=== PATIENT | female | born 1960 | race Caucasian/White ===

== ENCOUNTER 2016-06-10 07:56 | Day surgery (SDC) | payer OTHER ==
[~2016-06-10] VITALS: Ht 167.6 cm; Wt 55.8 kg
[~2016-06-10 07:56] MED LIST: PEPS1TAB11 PO; Sodium Chloride LOK Flush 10 mL Syringe IV PRN; fentaNYL-PF 50 mCg/mL 2 mL Inj IVPUSH PRN
[2016-06-10 08:32] VITALS: BP 120/75; PULSE 77; RESP 16; O2SAT 97
[2016-06-10] MEDS: 0.9% Sodium Chloride 1,000 ML IV SCH ×3 (08:33→09:03)
[2016-06-10 09:08] VITALS: BP 102/59; PULSE 68; RESP 12; O2SAT 95
--- NOTE | 2016-06-10 09:09 | PCM.ENDEGD ---
EGD Date of Service: Jun 10, 2016 Physician Christian Hahn MD Pre Procedure Diagnosis: Dysphagia Post Procedure Dx & Findings: Nonobstructing Schatzki's ring gastritis healing gastric ulcer whitish nodule in the small bowel. Procedure Esophagogastroduodenoscopy PROCEDURE IN DETAIL: After proper sedation, Olympus video endoscope was inserted into patient's mouth and esophagus was successfully intubated. Scope introduced esophagus. Esophagus showed normal shiny whitish mucosa consistent with squamous cell component. Z line was intact at 40 cm cm from the incisors. There was a nonobstructing Schatzki's ring with edema and redness. Biopsies obtained at the Z line and the Schatzki's ring. The Schatzki's ring was wide open. The scope further advanced to the stomach. The body of the stomach showed one patch area of redness about 2 cm in size this was biopsied. Also at the prepylorus area, there was 2 patches of what appears to be a healing ulcer. Biopsies are done and placed in the same bottle as the other stomach biopsy. Cardia fundus body antrum pylorus were all visualized. Retroflexion was done. Stomach was easily inflated and deflatable using air. Scope further events to the distal duodenum. Duodenum revealed normal villous structures with normal appearing folds without any mass ulcer erosion. However at the distal duodenum , there was 1 mm patch of whitish mucosa which was biopsied. Impression Nonobstructing Schatzki's ring gastritis. Healing Gastric ulcer whitish nodule in the small bowel. Recommendation Prilosec 20 mg twice a day Follow up in GI clinic 6 weeks Avoid NSAIDs Presedation Assessment Risks and Benefits Informed consent was obtained from the patient after all risks and benefits including but not limited to drug reaction, infection, pain, bleeding, perforation, as well as alternatives were discussed. Patient monitoring Continuous pulse oximetry, cardiac monitoring, blood pressure monitoring, IV access, and oxygen at 2L per nasal cannula. Periprocedural Fentanyl: Fentanyl 100mcg Incrementally Midazolam: Midazolam 4mg Incrementally Complications There were no periprocedural complications identified. Post Procedure Plan Post Procedure Recommendations 1. Restrict activities today. 2. Resume normal activities in the morning. 3. Resume medications. 4. GERD behavioral modification: - Avoid fatty, acidic, spicy, large meals - Do not lie down after meals - Do not eat or drink anything for at least 2 1/2 hours before going to bed at night - Discontinue tobacco and alcohol - Decrease or avoid caffeine - Avoid chocolate and mints - Decrease weight - Avoid aspirin and non steroidal anti-inflammatory agents (NSAID) such as Aleve, Advil, Mobic, Naproxen, Ibuprofen, etc 5. Add proton pump inhibitor. Take 30 minutes before 1st meal of the day. 6. Patient informed of normal post procedure side effects as bloating, drowsiness, blood streaking in the stool 7. If gastric biopsy reveal H.pylori, continue with appropriate treatment 8. If small bowel biopsy reveals celiac, continue with appropriate treatment 9. Please don't hesitate to call me with any questions Christian Hahn MD Jun 10, 2016 09:09
[2016-06-10 09:26] VITALS: BP 107/64; PULSE 69; RESP 12; O2SAT 100
--- NOTE | 2016-06-13 10:38 | PATH ---
SURGICAL PATHOLOGY Attending Physician:Christian Hahn M.D. CASE STATUS: Signed Out PATIENT NAME: KYM NEWMAN PID: [id number] : 1960 DATE COLLECTED:06/10/2016 17:18 SPECIMEN: 1: Duodenum, Biopsy 2: Gastric, Biopsy 3: Esophagus, Biopsy CLINICAL HISTORY: 1). DUODENAL WHITE NODULE BIOPSY 2). GASTRIC BIOPSY 3). SCHATZKI' S RING BIOPSY FINAL DIAGNOSIS: 1.DUODENAL WHITE NODULE BIOPSY: DUODENAL MUCOSA WITH FOCAL MUCOSAL LYMPHANGIECTASIA. Normal delicate mucosal villi present. Negative for significant inflammation, dysplasia and malignancy. 2.GASTRIC BIOPSY: MILD CHRONIC GASTRITIS INVOLVING ANTRAL AND FUNDIC MUCOSA. Negative for evidence of Helicobacter. Negative for intestinal metaplasia. Negative for dysplasia and malignancy. 3.SCHATZKI' S RING BIOPSY: FRAGMENTS OF GASTRIC CARDIA-TYPE MUCOSA WITH CHRONIC INFLAMMATION AND REACTIVE EPITHELIAL CHANGES. NO SQUAMOUS MUCOSA IDENTIFIED. Negative for specialized metaplasia of Chance' s-type esophagus. Negative for dysplasia and malignancy. ICD10 code K29.70 GROSS DESCRIPTION: The specimen is received in three formalin filled containers labeled with the patient's name. 1). The specimen is sublabeled "duodenal white nodule" and consists of a 0.3 x 0.3 x 0.3 CM portion of tissue. The specimen is entirely submitted in cassette 1A. 2). The specimen is sublabeled "gastric" and consists of 3 portions of tissue which aggregate to 0.3 x 0.3 x 0.2 CM. The specimen is entirely submitted in cassette 2A. 3). The specimen is sublabeled "Schatzki's ring" and consists of a 0.2 x 0.2 x 0.1 CM portion of tissue which is entirely submitted in cassette 3A. 06/10/2016 [facility] MICRO DESCRIPTION: See diagnosis. ICD-9 CODES: CPT CODES: 1: 90917 2: 81947 3: 64481 Electronically Signed Out Jt Kaiser MD [facility] [address], [place] [address] Technical component performed at [facility], [facility] [address], [address]
== END 2016-06-10 23:59 | disposition home or self-care (01) ==
LOC: END 07:56
PROVIDERS: ATTEND Internal Medicine
DX: K29.50 Unspecified chronic gastritis without bleeding (principal); K25.9 Gastric ulcer, unspecified as acute or chronic, without hemorrhage or perforation; K22.2 Esophageal obstruction; R13.10 Dysphagia, unspecified; E05.90 Thyrotoxicosis, unspecified without thyrotoxic crisis or storm; R31.29 Other microscopic hematuria
CPT/HCPCS: 43239; G0500; J7030